=== PATIENT | male | born 1955 | race African-American/Black ===

== ENCOUNTER 2023-10-01 16:30 | Inpatient (IN) | payer MEDICARE ==
[2023-10-01] MEDS ORDERED: Acetaminophen 325 MG TAB PO PRN (18:26)
[2023-10-01] MEDS ORDERED: Ondansetron PF 4 MG/2 ML Vial IVP PRN (18:26)
[2023-10-01] MEDS ORDERED: HYDROcodone/Acetaminophen 5/325 mg Tablet PO PRN (18:26)
[2023-10-01] MEDS ORDERED: Nitroglycerin 0.4 MG TAB (25 Tab Bottle) SL PRN (18:29)
[2023-10-01] MEDS ORDERED: Loratadine 10 MG TAB PO PRN (18:31)
[2023-10-01] MEDS ORDERED: hydrALAZINE 20 MG/ML VIAL SLOW IVP PRN (18:31)
[2023-10-01] MEDS ORDERED: Ondansetron ODT 4 MG TAB PO PRN (18:32)
[2023-10-01] MEDS ORDERED: Lorazepam 1 MG TAB PO PRN (18:32)
[2023-10-01] MEDS ORDERED: Lorazepam 2 MG/ML VIAL IM PRN (18:32)
[2023-10-01] MEDS ORDERED: Electrolyte Replacement Protocol 1 EACH FS SCH (18:45)
[2023-10-01] MEDS: Sodium Chloride 0.9% 1,000 ML IV SCH (18:58)
[2023-10-01 19:47] LABS: Bilirubin, Direct 0.2 mg/dL (0.1-0.3); Magnesium 1.8 mg/dL (1.6-2.6); Phosphorus 3.6 mg/dL (2.3-4.7)
[2023-10-01 19:50] LABS: Troponin I 0.064 ng/mL (< 0.028)
[2023-10-01] MEDS: Multivit, Therapeutic 1 TAB PO SCH (21:18)
[2023-10-01] MEDS: Atorvastatin Calcium 40 MG TAB PO SCH (21:19)
[2023-10-01] MEDS: Folic Acid 1 MG TAB PO SCH (21:19)
[2023-10-01] MEDS: Thiamine HCl 200 MG/2 ML VIAL SLOW IVP SCH (21:19)
[2023-10-01] MEDS: Metoprolol Tartrate 50 MG TAB PO SCH (21:19)
[2023-10-01] MEDS: Magnesium 2 GM/50 ML(in water) 2 GM in Premix 1 BAG IVPB SCH (21:19)
[2023-10-01 21:47] LABS: Troponin I 0.062 ng/mL (< 0.028)
[2023-10-01 23:01] LABS: Amphetamine Not Detected (NotDetected); Barbiturates Screen Not Detected (NotDetected); Benzodiazepine Screen Not Detected (NotDetected); Cocaine Metabolite Screen Not Detected (NotDetected); Methadone Not Detected (NotDetected); Methamphetamine Not Detected (NotDetected); Opiate Screen Not Detected (NotDetected); Oxycodone Screen Not Detected (NotDetected); Phencyclidine (PCP) Not Detected (NotDetected); THC/Cannabinoid Screen Not Detected (NotDetected); Tricyclic Screen Not Detected (NotDetected)
[2023-10-02 06:09] LABS: #Basophils 0.03 10x3/uL (0.0-0.2); #Eosinphils 0.02 10x3/uL (0.0-0.5); #Monocytes 1.24 10x3/uL (0.0-1.1); #Neutrophils 3.36 10x3/uL (1.5-8.4); %Basophils 0.4 % (0.0-2.0); %Eosinophils 0.3 % (0.0-6.0); %Lymphocytes 31.2 % (18.0-47.0); %Monocytes 18.3 % (0.0-10.0); %Neutrophils 49.5 % (40.0-75.0); Hematocrit 40.9 % (38.8-50.0); Hemoglobin 14.3 g/dL (13.5-17.5); Mean Corpuscular Hemoglobin 28.9 pg (27.0-33.0); Mean Corpuscular Volume 82.8 fL (81.2-95.1); Mean Platelet Volume 11.4 fL (7.4-10.4); Platelet Count 311 10x3/uL (150-450); RBC Distribution Width 15.9 % (11.5-14.5); Red Blood Cell (RBC) Count 4.94 10x6/uL (4.32-5.72); White Blood Cell (WBC) Count 6.8 10x3/uL (3.5-10.5)
[2023-10-02 06:13] LABS: ALT (SGPT) 41 U/L (8-55); AST (SGOT) 41 U/L (5-34); Albumin 3.8 g/dL (3.4-4.8); Alkaline Phosphatase 49 U/L (40-110); Anion Gap 17 mmol/L (10-20); BUN (Urea Nitrogen) 7 mg/dL (8.4-25.7); Bilirubin, Total 0.9 mg/dL (0.2-1.2); Calc. Creatinine Clearance 97 mL/min (70-130); Calcium 9.5 mg/dL (7.8-10.44); Carbon Dioxide 22 mmol/L (23-31); Cardiac Risk 1.9 (Less than 4.5); Chloride 102 mmol/L (98-107); Cholesterol 149 mg/dl (< 200 Desired); Estimated GFR 94; Globulin 4.2 g/dL (2.4-3.5); Glucose 98 mg/dL (80-115); HDL Cholesterol 79 mg/dL (>60 Neg Risk); LDL Cholesterol, Calculated 56 mg/dL; Magnesium 2.2 mg/dL (1.6-2.6); Sodium 137 mmol/L (136-145); Triglycerides 71 mg/dL (Less than 150)
[2023-10-02] MEDS ORDERED: Carvedilol 6.25 MG TAB PO SCH (08:00)
[2023-10-02] MEDS: Aspirin 81 mg Enteric Coated Tablet PO SCH (08:23)
[2023-10-02] MEDS: Amlodipine 10 MG TAB PO SCH (08:23)
[2023-10-02] MEDS: Folic Acid 1 MG TAB PO SCH (08:23)
[2023-10-02] MEDS: Enoxaparin 40 MG (0.4 mL) SYRINGE SC SCH (08:23)
[2023-10-02] MEDS: Multivit, Therapeutic 1 TAB PO SCH (08:23)
[2023-10-02] MEDS: Fluticasone Propionate Nasal Spray 16 gm Bottle NASAL SCH (08:24)
[2023-10-02 13:32] LABS: Hemoglobin A1c 5.7 % (4.0-6.0)
[2023-10-02] MEDS ORDERED: Lorazepam 1 MG TAB PO PRN (18:32)
[2023-10-03] MEDS: Levothyroxine Sodium 25 MCG TAB PO SCH (06:10)
[2023-10-03] MEDS ORDERED: Communication Order-Pharmacy FS SCH (09:00)
[2023-10-03] MEDS: Losartan 25 MG TAB PO SCH (13:11)
[2023-10-03] MEDS ORDERED: Lorazepam 0.5 MG TAB PO PRN (18:45)
[2023-10-04 03:59] VITALS: TEMP 98.8
[2023-10-04] MEDS: Sodium Chloride 0.9% 1,000 ML IV SCH ×2 (04:03→10:47)
[2023-10-04] MEDS ORDERED: Heparin 10,000 UNITS/ 10 ML VIAL ONE (07:02)
[2023-10-04] MEDS ORDERED: Bivalirudin 250 MG VIAL ONE ×2 (07:05→08:34)
[2023-10-04] MEDS ORDERED: Lidocaine 1% (PF) 30 ML VIAL ONE (07:12)
[2023-10-04] MEDS ORDERED: fentaNYL 50 mcg/mL 1 mL Vial ONE (07:51)
[2023-10-04] MEDS ORDERED: Midazolam HCl 2 mg/2 ml Vial ONE (07:51)
[2023-10-04] MEDS ORDERED: Nitroglycerin 50 MG/250 ML BOT 250 ML ONE (08:03)
[2023-10-04] MEDS ORDERED: Verapamil 5 MG/2 ML VIAL ONE (08:03)
[2023-10-04] MEDS ORDERED: TICAGRELOR 90 MG TABLET ONE (08:25)
[2023-10-04] MEDS ORDERED: TICAGRELOR 90 MG TABLET PO SCH ×2 (09:30→21:00)
[2023-10-04] MEDS: Losartan 25 MG TAB PO SCH (10:43)
[2023-10-04 10:44] VITALS: BP 141/67
[2023-10-04] MEDS ORDERED: Iopamidol 300 61% 100 ML VIAL FS ONE (12:33)
[2023-10-04] MEDS ORDERED: Lorazepam 0.5 MG TAB PO PRN (18:32)
[2023-10-04] MEDS ORDERED: Thiamine 100 MG TAB PO SCH (21:00)
== END 2023-10-04 13:59 | disposition home or self-care (01) | DRG 324 ==
LOC: CSHTELE 16:30 → INTOOBSV 16:30 → OBSVTOIN 10-02 14:56
PROVIDERS: ADMIT Internal Medicine; ATTEND Family Medicine
PROC: 027135Z Dilation of Coronary Artery, Two Arteries with Two Drug-eluting Intraluminal Devices, Percutaneous Approach (ICD-10-PCS; principal; 2023-10-04)
PROC: 02F03ZZ Fragmentation in Coronary Artery, One Artery, Percutaneous Approach (ICD-10-PCS; 2023-10-04)
PROC: 4A023N7 Measurement of Cardiac Sampling and Pressure, Left Heart, Percutaneous Approach (ICD-10-PCS; 2023-10-04)
PROC: B2111ZZ Fluoroscopy of Multiple Coronary Arteries using Low Osmolar Contrast (ICD-10-PCS; 2023-10-04)
DX: I21.4 Non-ST elevation (NSTEMI) myocardial infarction (principal); E87.1 Hypo-osmolality and hyponatremia; I25.10 Atherosclerotic heart disease of native coronary artery without angina pectoris; I10 Essential (primary) hypertension; E03.9 Hypothyroidism, unspecified; F17.290 Nicotine dependence, other tobacco product, uncomplicated; F10.10 Alcohol abuse, uncomplicated; Z79.890 Hormone replacement therapy; Z79.899 Other long term (current) drug therapy; Z71.6 Tobacco abuse counseling
CPT/HCPCS: 36415; 80053; 80061; 80306; 82248; 83036; 83735; 84100; 85025; 92928; 92972; 93306; 93458; 96372; 96374; 96375; 99152; 99153; C1725; C1761; C1769; C1874; C1887; C1894; C9600; G0378; J0583; J1644; J1650; J2001; J2250; J3010; J3411; J3475; J7050; Q9967